=== PATIENT | female | born 1990 | race Caucasian/White ===

== ENCOUNTER 2025-05-18 | Emergency (ER) | payer OTHER ==
[~2025-05-18] VITALS: Ht 162.6 cm; Wt 60.0 kg
[2025-05-18 00:20] VITALS: O2SAT 100
[2025-05-18] MEDS ORDERED: CEPH500T MT (03:04)
[2025-05-18] MEDS ORDERED: IBUP-1455 PO (03:04)
[2025-05-18] MEDS: CEPHALEXIN 250MG CAPSULE PO NR (03:07)
[2025-05-18 03:15] VITALS: BP 118/59; PULSE 78; RESP 16; TEMP 36.6; O2SAT 100
== END 2025-05-18 03:24 | disposition home or self-care (01) ==
LOC: ER
DX: S97.82XA Crushing injury of left foot, initial encounter (principal); I10 Essential (primary) hypertension; W20.8XXA Other cause of strike by thrown, projected or falling object, initial encounter; Y93.89 Activity, other specified; Y92.89 Other specified places as the place of occurrence of the external cause; Y99.8 Other external cause status
CPT/HCPCS: 73630; 99283; Z7610